=== PATIENT | female | born 1940 | race Caucasian/White ===

== ENCOUNTER 2018-02-12 12:26 | Emergency (ER) | payer MEDICARE, BC ==
[~2018-02-12] VITALS: Ht 157.5 cm; Wt 14.9 kg
[~2018-02-12 12:26] MED LIST: ALBU6.7H INH; ASPI-1 PO; ATRIN INH; BUDE10.2 INH; CLON-527 PO; ESTR0.3T10 PO; IPRA3AMP9 IH; NIFE60TA69 PO; NORCO10T PO; PANT40TA39 PO; ROPI1TAB2 PO; TIOT18CA3 IH
[2018-02-12 13:20] VITALS: BP 115/72
== END 2018-02-12 13:29 | disposition home or self-care (01) ==
LOC: ER 12:26
DX: S90.32XA Contusion of left foot, initial encounter (principal); I10 Essential (primary) hypertension; J44.9 Chronic obstructive pulmonary disease, unspecified; K21.9 Gastro-esophageal reflux disease without esophagitis; Z88.5 Allergy status to narcotic agent; Z79.82 Long term (current) use of aspirin; Z79.899 Other long term (current) drug therapy; Z90.710 Acquired absence of both cervix and uterus; Z98.890 Other specified postprocedural states; W20.8XXA Other cause of strike by thrown, projected or falling object, initial encounter; Y93.89 Activity, other specified; Y92.89 Other specified places as the place of occurrence of the external cause; Y99.8 Other external cause status
CPT/HCPCS: 73630; 99284

== ENCOUNTER 2018-08-31 12:07 | Inpatient (IN) | payer MEDICARE, BC | END 2018-09-02 15:45 | disposition home or self-care (01) | LOC: ER 12:07 → ED HOLD 17:39 → SUR 3N 20:20 | DX: J44.1 Chronic obstructive pulmonary disease with (acute) exacerbation (principal) ==